=== PATIENT | female | born 1960 | race Caucasian/White ===

== ENCOUNTER 2017-05-03 19:53 | Emergency (ER) | payer SELFPAY ==
--- NOTE | ~2017-05-03 | ER ---
PATIENT'S NAME: Y[facility]SELIN [facility] AGE: 57 Y [address] ROOM: [place] [address] LOCATION: [facility] ADMIT DATE: 05/03/2017 ER/Outpatient Report DISCHARGE DATE: 05/03/2017 FAMILY PHYSICIAN: PHYSICIAN, NO ATTENDING PHYSICIAN: Humble Zaidi CHIEF COMPLAINT: Fall on Monday. HISTORY OF PRESENT ILLNESS: The patient states that she fell on Monday, it was a mechanical fall. She lost her balance while she was reaching. She did, however, have loss of consciousness and woke up on the floor. She had significant left-sided breast pain since then and has taken some [id number]-uynoxzg anti-inflammatories but feels like she is not getting better like she should. For those reasons, she came in for evaluation. She denies any shortness of breath associated with this. No other acute findings. PAST MEDICAL HISTORY: Documented on the record and reviewed by me. SOCIAL HISTORY: Documented on the record and reviewed by me. MEDICATIONS: Documented on the record and reviewed by me. ALLERGIES: DOCUMENTED ON THE RECORD AND REVIEWED BY ME. REVIEW OF SYSTEMS: All systems reviewed and are negative except as noted in the HPI. PHYSICAL EXAMINATION: VITAL SIGNS: Blood pressure 168/82, pulse 90, respiratory rate 16, temperature 97, SpO2 is 96% on room air. Pain is rated at 7/10. GENERAL: An age appropriate female, sitting upright on exam table. No apparent distress, in mild pain. NEUROLOGIC: Awake and alert. GCS 15. No focal deficits. No asymmetry. HEENT: Normocephalic, atraumatic. Eyes are PERRL. Oropharynx is clear. NECK: Supple. Trachea is midline. HEART: Regular rate and rhythm with no murmurs. LUNGS: Clear to auscultation bilaterally with no rhonchi, wheezes, or rales. Chest wall is tender to palpation diffusely throughout the axilla. BREASTS: The left breast is slightly tender to palpation. No obvious masses. PATIENT'S NAME: GUNNAR WYATT [facility] AGE: 57 Y [address] ROOM: [place] [address] LOCATION: [facility] ADMIT DATE: 05/03/2017 ER/Outpatient Report DISCHARGE DATE: 05/03/2017 FAMILY PHYSICIAN: PHYSICIAN, NO ATTENDING PHYSICIAN: Humble Zaidi BACK: Normal to inspection. There is tenderness diffusely throughout the C and upper thoracic spines. No lumbar spinal tenderness. No CVA tenderness. No crepitus appreciated. ABDOMEN: Soft, nontender, and nondistended. No rebound or guarding. EXTREMITIES: Warm and well perfused. There is some discomfort throughout the left forearm, but otherwise unremarkable extremities. SKIN: Clean, dry, and intact with some scant ecchymosis over the upper extremity on the left side. LABORATORY DATA AND X-RAYS: EKG was obtained, normal sinus rhythm, rate of 75 with normal intervals and axis, normal EKG without comparison. No further labs were obtained. Plain films of the left forearm and rib cage and chest were obtained with no fractures per my review. CT of the head, C-spine, and T-spine were obtained and negative per Radiology. IMPRESSION: Contusions to the left thorax. EMERGENCY DEPARTMENT COURSE: The patient was seen and evaluated as above. She has been doing well for the last few days but just was not getting better like she felt she should. Based on physical exam, imaging was obtained as above. EKG to ensure no conduction abnormality as a cause for the fall. No urinary symptoms. No other evidence of infection. The patient was given some Frederick for pain management and was feeling much better in the emergency department. She will be discharged home with some Frederick as well. The usual precautions were discussed. All questions were answered, and the patient was discharged with instructions to return if worse and to use her incentive spirometer at home to prevent any pneumonia. She may also use fkke-kfo-eazrlsz anti-inflammatories. All questions were answered, and the patient was discharged in good condition. MD MUNIR LUIS/ambrose /[id number] d: 05/04/17 0458 t: 05/09/17 1224, OUTPATIENT REPORT
== END 2017-05-03 22:23 | disposition disaster alternative care site (69) ==
LOC: GACC 19:53
DX: S20.222A Contusion of left back wall of thorax, initial encounter (principal); S20.02XA Contusion of left breast, initial encounter; S40.022A Contusion of left upper arm, initial encounter; K21.9 Gastro-esophageal reflux disease without esophagitis; Z88.0 Allergy status to penicillin; Z79.899 Other long term (current) drug therapy; Z98.890 Other specified postprocedural states; W19.XXXA Unspecified fall, initial encounter

== ENCOUNTER 2017-05-09 15:09 | Emergency (ER) | payer SELFPAY ==
--- NOTE | ~2017-05-09 | ER ---
PATIENT'S NAME: GUNNAR WYATT [facility] AGE: 57 Y [address] ROOM: [place] [id number] LOCATION: [facility] ADMIT DATE: 05/09/2017 ER/Outpatient Report DISCHARGE DATE: 05/09/2017 FAMILY PHYSICIAN: PHYSICIAN, NO ATTENDING PHYSICIAN: Rajesh Cortes Time of Arrival: 1512 hours. Time of Evaluation: 1512 hours. CHIEF COMPLAINT: Shortness of breath. HISTORY OF PRESENT ILLNESS: The patient states that she fell on 04/30/2017 trying to change a light fixture that was too far from her reach. She ended up falling on her left side. She did come to the ER on 05/03/2017 and was evaluated. At that time, she was told that she had contusion to her left thoracic area and was given medicine for pain. She states that she has shortness of breath. Since then, she continues to have a cough. She says the cough is dry but very painful when she tends to cough. She has felt feverish in the last couple of days. She has pain with inspiration, and it causes her to cough. She denies any additional injury at this time. ALLERGIES: PENICILLIN. CURRENT MEDICATIONS: On her chart and reviewed by me. PAST MEDICAL HISTORY: Depression, anxiety. PAST SURGICAL HISTORY: Cholecystectomy, hysterectomy, a ruptured disk of her neck requiring surgery, and right wrist. SOCIAL HISTORY: She does smoke half pack per day and has for the last 40 years, however, says she has not smoked today because it caused her to cough and she can not breathe. She denies use of drugs. Drinks alcohol on a social basis only. REVIEW OF SYSTEMS: All negative other than those mentioned in the HPI. PHYSICAL EXAMINATION: PATIENT'S NAME: GUNNAR WYATT [facility] AGE: 57 Y [address] ROOM: [place], [place] [address] LOCATION: [facility] ADMIT DATE: 05/09/2017 ER/Outpatient Report DISCHARGE DATE: 05/09/2017 FAMILY PHYSICIAN: PHYSICIAN, NO ATTENDING PHYSICIAN: Rajesh Cortes VITAL SIGNS: She weights 88.5 kg, blood pressure is 157/75, pulse is 78, respirations 24, temperature of 98 tympanic, O2 saturation is 94% on room air. GENERAL: She is awake, alert, and oriented x4. SKIN: [place], warm, and dry. RESPIRATIONS: Even and nonlabored. Lung sounds are clear throughout. Decreased in the bases. She does have some bruising to her left lateral chest, into the left breast area. HEART: Regular rate and rhythm. ABDOMEN: Soft, nondistended. Bowel sounds are present. EXTREMITIES: She moves all extremities strongly and equally. Walked in with a steady even gait. EMERGENCY DEPARTMENT COURSE: Saline lock was initiated and lab work was drawn. LABORATORY DATA AND X-RAYS: CBC is within normal limits. Chem panel is within normal limits. Lactate was 0.7. Procalcitonin was normal. Chest x-ray was completed, reviewed with Dr. Cortes, shows some basilar infiltrates. IMPRESSION: Left lower lobe pneumonia. PLAN: Home, rest, fluids. Encouraged her to take a deep breath. Tylenol or ibuprofen for fever and discomfort. Prescription was written for azithromycin for antibiotics, Robitussin AC cough syrup, and prednisone for the inflammation. If her symptoms do not improve in the next 2 to 3 days, she needs to follow up with her primary provider or return to the ER. She verbalized understanding. JOSEPH WELSH APRN FOR MD CYRUS LEWIS/ambrose /[id number] d: 05/10/17 0010 t: 05/12/17 1814, OUTPATIENT REPORT
[2017-05-09 15:44] LABS: BASOPHIL % 0.4 %; EOSINOPHIL # 0.1 K/uL (0.0-0.5); EOSINOPHIL % 1.4 %; HEMATOCRIT 31.3 % (33.0-46.0); HEMOGLOBIN 10.5 g/dL (10.0-15.0); IMMATURE GRANULOCYTE # 0.1 K/uL (0.0-0.3); LYMPHOCYTE % 20.6 %; MCH 29.9 pg (27.0-34.0); MCHC 33.5 gm/dL (32.0-36.5); MCV 89.2 fl (83.0-98.0); MONOCYTE # 0.6 K/uL (0.0-1.0); MONOCYTE % 10.9 %; MPV 8.8 fl (9.4-12.4); NEUTROPHIL # (ANC) 3.3 K/uL (1.8-7.8); NEUTROPHIL % 65.7 %; NRBC % 0 /100WBC (0-0.00); PLATELET COUNT 386 K/uL (150-450); RBC 3.51 M/uL (3.50-5.50); RDW-CV 12.7 % (11.9-14.6)
[2017-05-09 16:07] LABS: ALBUMIN 2.8 gm/dL (3.5-5.0); ALK PHOS 79 IU/L (33-138); ALT 22 IU/L (12-78); ANION GAP 12.8 (10.0-19.0); AST 13 IU/L (10-40); BLOOD UREA NITROGEN 10 mg/dL (6-24); CALCIUM 8.6 mg/dL (8.5-10.5); CHLORIDE 106 mMol/L (96-110); CO2 23 mMol/L (22-32); CREATININE 0.7 mg/dL (0.5-1.1); POTASSIUM 3.8 mMol/L (3.7-5.1); SODIUM 138 mMol/L (135-145); TOTAL BILIRUBIN 0.3 mg/dL (0.0-1.5); TOTAL PROTEIN 7.4 g/dL (6.0-8.4)
== END 2017-05-09 16:50 | disposition disaster alternative care site (69) ==
LOC: GMED 15:09
PROVIDERS: Emergency Medicine
DX: J18.9 Pneumonia, unspecified organism (principal); S20.02XA Contusion of left breast, initial encounter; F41.9 Anxiety disorder, unspecified; F17.210 Nicotine dependence, cigarettes, uncomplicated; F32.9 Major depressive disorder, single episode, unspecified; Z90.710 Acquired absence of both cervix and uterus; Z90.49 Acquired absence of other specified parts of digestive tract; Z98.890 Other specified postprocedural states; Z88.0 Allergy status to penicillin; W19.XXXA Unspecified fall, initial encounter